=== PATIENT | female | born 1975 | race Caucasian/White ===

== ENCOUNTER 2019-07-21 07:42 | Inpatient (IN) | payer OTHER ==
[~2019-07-21] VITALS: Ht 167.6 cm; Wt 119.5 kg
[~2019-07-21 07:42] MED LIST: AMLO10TA7 PO; BUPIVACAINE HCL/PF 0.25% 30 ML VIAL ONE; BUPIVACAINE LIPOSOME/PF 1.3%-13.3MG/ML SUSPENSION 20 ML VIAL INJ ONE; HYDR-1475 PO; METO50 PO; OMEP10 PO; RINGERS SOLUTION,LACTATED 1,000 ML IV ONE; SITA1TBM7 PO; SODIUM CHLORIDE 0.9% 0 ML ONE; VASOPRESSIN 20 UNITS/ML VIAL ONE
[2019-07-21] MEDS ORDERED: SODIUM CL IRRIG SOLN BAG 0 ML IRRIG ONE (08:10)
[2019-07-21] MEDS ORDERED: SODIUM CL IRRIG SOLN BAG 3,000 ML IRRIG ONE (08:11)
[2019-07-21] MEDS ORDERED: WATER FOR IRRIGATION,STERILE 3,000 ML IRRIG ONE (08:25)
[2019-07-21 08:30] LABS: BASOPHILS % (AUTO) 1.5 % (0.0-2.0); EOSINOPHILS % (AUTO) 2.7 % (1.0-6.0); HEMATOCRIT 38.7 % (36-46); LYMPHOCYTES # (AUTO) 2.5 K/uL (1.0-4.8); LYMPHOCYTES % (AUTO) 29.4 % (22.0-44.0); MEAN CORPUSCULAR HEMOGLOBIN 28.1 pg (26.0-34.0); MEAN CORPUSCULAR HGB CONC 33.5 G/dL (31.0-37.0); MEAN CORPUSCULAR VOLUME 84 fL (80-100); MONOCYTES # (AUTO) 0.5 K/uL (0.1-1.0); MONOCYTES % (AUTO) 6.6 % (2.0-9.0); NEUTROPHILS % (AUTO) 59.8 % (40.0-70.0); PLATELET COUNT (AUTO) 258 K/uL (150-450); RED BLOOD CELL COUNT(AUTO) 4.61 MIL/uL (4.00-5.20); RED CELL DISTRIBUTION WIDTH 14.7 % (11.5-14.5)
[2019-07-21 08:52] LABS: ANION GAP 10 mmol/L (8-16); APPEARANCE,URINE CLOUDY (CLEAR); BILIRUBIN,URINE NEGATIVE (NEGATIVE); CALCIUM, TOTAL 8.5 mg/dL (8.8-10.5); CARBON DIOXIDE 26 mmol/L (22-29); CHLORIDE 100 mmol/L (98-107); CREATININE 0.92 mg/dL (0.60-1.30); GLOMERULAR FILTR. RATE CALC > 60 mL/min (>60); GLUCOSE, URINE (UA) 250 mg/dL (NEGATIVE); GLUCOSE,RANDOM 216 mg/dL (70-110); KETONES,URINE NEGATIVE (NEGATIVE); LEUKOCYTE ESTERASE ,URINE SMALL (NEGATIVE); NITRATE,URINE NEGATIVE (NEGATIVE); OCCULT BLOOD,URINE NEGATIVE (NEGATIVE); POTASSIUM 3.2 mmol/L (3.5-5.1); PROTEIN,URINE NEGATIVE (NEGATIVE); SODIUM SERUM 136 mmol/L (136-145); UREA NITROGEN, BLOOD 22 mg/dL (7-18); UROBILINOGEN,URINE 0.2 mg/dL (<=1.0)
[2019-07-21 08:58] LABS: ALANINE AMINOTRANSFERASE 21 U/L (12-78); ALBUMIN 3.4 g/dL (3.4-5.0); ALKALINE PHOSPHATASE 82 U/L (46-116); ASPARTATE AMINOTRANSFERASE 11 U/L (15-37); BILIRUBIN,TOTAL 0.3 mg/dL (0.1-1.0); TOTAL PROTEIN, SERUM 7.6 g/dL (6.4-8.2)
[2019-07-21] MEDS ORDERED: BUPIVACAINE LIPOSOME/PF 1.3%-13.3MG/ML SUSPENSION 20 ML VIAL INJ ONE (09:00)
[2019-07-21 09:08] LABS: BACTERIA,URINE None Seen /HPF (None Seen); RBC,URINE None Seen /HPF (0-2); SQUAMOUS EPITHELIAL CELL,UR Moderate /LPF (None Seen); WBC,URINE 0-2 /HPF (0-5)
[2019-07-21] MEDS ORDERED: CefoTEtan DISOD 2 GM/DEXTROSE 50 ML IV ONE (09:42)
[2019-07-21] MEDS ORDERED: RINGERS SOLUTION,LACTATED 1,000 ML IV ONE (09:43)
[2019-07-21] MEDS ORDERED: FentaNYL CITRATE-PF 100 MCG/2 ML VIAL IVP PRN (11:15)
[2019-07-21] MEDS ORDERED: HYDROmorphone 2 MG/ML SYRINGE IVP PRN ×2 (11:15)
[2019-07-21] MEDS ORDERED: MIDAZOLAM HCL 2 MG/2 ML VIAL IVP PRN (11:15)
[2019-07-21] MEDS ORDERED: ONDANSETRON HCL 4 MG/2 ML VIAL IVP PRN ×2 (11:15)
[2019-07-21] MEDS ORDERED: DiphenhydrAMINE HCL 50 MG/ML VIAL IVP PRN (11:15)
[2019-07-21] MEDS ORDERED: MEPERIDINE-PF 25 MG/ML VIAL IVP PRN (11:15)
[2019-07-21] MEDS ORDERED: NALOXONE HCL 0.4 MG/ML VIAL IVP PRN ×2 (11:15)
[2019-07-21] MEDS ORDERED: ACETAMINOPHEN 1000 MG/ISO-OSM 100 ML IV ONE ×2 (11:15→13:18)
[2019-07-21] MEDS ORDERED: NALBUPHINE HCL 10 MG/ML VIAL IVP PRN ×2 (11:15)
[2019-07-21] MEDS ORDERED: METHYLENE BLUE 0.5% 10 ML AMPULE IVP ONE (11:45)
[2019-07-21] MEDS ORDERED: ROCURONIUM BROMIDE 10 MG/ML 5 ML VIAL IVP ONE (12:00)
[2019-07-21] MEDS ORDERED: MIDAZOLAM HCL 2 MG/2 ML VIAL IVP ONE (12:00)
[2019-07-21] MEDS ORDERED: FentaNYL CITRATE-PF 100 MCG/2 ML VIAL IVP ONE (12:00)
[2019-07-21] MEDS ORDERED: LIDOCAINE/PF 2% 5 ML VIAL INJ ONE (12:00)
[2019-07-21] MEDS ORDERED: PROPOFOL 1% 20 ML VIAL IVP ONE (12:00)
[2019-07-21] MEDS ORDERED: MORPHINE SULFATE/PF 0.5 MG/ML 10 ML AMP IVP ONE (12:00)
[2019-07-21] MEDS ORDERED: IOHEXOL 240 MG/ML 20 ML VIAL ONE (12:36)
[2019-07-21] MEDS ORDERED: INDIGOTINDISULFONATE SODIUM IVP ONE (12:45)
[2019-07-21] MEDS ORDERED: ONDANSETRON HCL 4 MG/2 ML VIAL ONE ×2 (13:17→14:10)
[2019-07-21 13:37] LABS: GLUCOMETER DEV NAME(LOC) SDS.; GLUCOSE,POINT OF CARE 175 MG/DL (70-110)
[2019-07-21] MEDS ORDERED: DEXTROSE 50%-WATER 25 GM/50 ML SYRINGE IVP PRN ×2 (13:45→16:45)
[2019-07-21] MEDS ORDERED: METOCLOPRAMIDE HCL 5 MG/ML 2 ML VIAL ONE (14:11)
[2019-07-21] MEDS ORDERED: METOCLOPRAMIDE HCL 5 MG/ML 2 ML VIAL IVP STA (14:13)
[2019-07-21] MEDS ORDERED: ONDANSETRON HCL 4 MG/2 ML VIAL IVP STA (14:13)
[2019-07-21] MEDS ORDERED: MEPERIDINE-PF 25 MG/ML VIAL ONE (14:19)
[2019-07-21 15:16] VITALS: BP 116/69
[2019-07-21] MEDS: DEXTROSE 5%-0.45% SODIUM CHL 1,000 ML IV SCH (16:24)
[2019-07-21] MEDS ORDERED: INSULIN LISPRO 100 UNITS/ML SQ PRN (16:45)
[2019-07-21] MEDS ORDERED: NICOTINE 7 MG/24 HOUR PATCH TD SCH (17:00)
[2019-07-21] MEDS ORDERED: INFLUENZA VIRUS VACCINE QVS 2019-20 (3YR+)/PF 60 MCG/0.5 ML SYRINGE IM ONE (17:00)
[2019-07-21 17:35] LABS: GLUCOMETER DEV NAME(LOC) 4S.; GLUCOSE,POINT OF CARE 257 MG/DL (70-110)
[2019-07-21] MEDS: INSULIN LISPRO 100 UNITS/ML SQ PRN ×2 (17:47→20:30)
[2019-07-21] MEDS: KETOROLAC TROMETHAMINE 15 MG/ML VIAL IVP SCH (18:43)
[2019-07-21] MEDS ORDERED: OXYGEN THERAPY IH SCH ×2 (20:00)
[2019-07-21 20:43] VITALS: BP 100/65
[2019-07-21 21:10] LABS: GLUCOSE,POINT OF CARE 223 MG/DL (70-110)
[2019-07-21] MEDS ORDERED: ZOLPIDEM TARTRATE 5 MG TABLET PO PRN (21:30)
[2019-07-21] MEDS: METOPROLOL TARTRATE 50 MG TABLET PO SCH (21:50)
[2019-07-22] MEDS: DEXTROSE 5%-0.45% SODIUM CHL 1,000 ML IV SCH
[2019-07-22 00:06] VITALS: BP 102/69
[2019-07-22] MEDS: KETOROLAC TROMETHAMINE 15 MG/ML VIAL IVP SCH ×4 (01:30→20:35)
[2019-07-22 04:18] VITALS: BP 118/64
[2019-07-22 05:48] VITALS: BP 108/69
[2019-07-22 07:25] LABS: BASOPHILS % (AUTO) 0.4 % (0.0-2.0); EOSINOPHILS % (AUTO) 1.5 % (1.0-6.0); HEMATOCRIT 32.9 % (36-46); HEMOGLOBIN 11.2 g/dL (12.0-16.0); LYMPHOCYTES # (AUTO) 1.8 K/uL (1.0-4.8); LYMPHOCYTES % (AUTO) 22.8 % (22.0-44.0); MEAN CORPUSCULAR HEMOGLOBIN 28.8 pg (26.0-34.0); MEAN CORPUSCULAR VOLUME 85 fL (80-100); MONOCYTES # (AUTO) 0.6 K/uL (0.1-1.0); MONOCYTES % (AUTO) 7.2 % (2.0-9.0); NEUTROPHILS # (AUTO) 5.4 K/uL (1.8-7.7); NEUTROPHILS % (AUTO) 68.1 % (40.0-70.0); PLATELET COUNT (AUTO)-OB 214 K/uL (150-450); RED BLOOD CELL COUNT(AUTO) 3.88 MIL/uL (4.00-5.20)
[2019-07-22 07:34] LABS: CALCIUM, TOTAL 7.6 mg/dL (8.8-10.5); CREATININE 1.06 mg/dL (0.60-1.30)
[2019-07-22 07:41] LABS: POTASSIUM 2.9 mmol/L (3.5-5.1)
[2019-07-22 07:49] VITALS: BP 105/61
[2019-07-22 07:50] LABS: HEMOGLOBIN A1C 10.4 % (3.8-5.6)
[2019-07-22] MEDS ORDERED: POTASSIUM CHLORIDE 20 MEQ ER TABLET PO ONE ×2 (08:00→21:00)
[2019-07-22 08:06] LABS: GLUCOMETER DEV NAME(LOC) 4S.; GLUCOSE,POINT OF CARE 156 MG/DL (70-110)
[2019-07-22] MEDS: INSULIN LISPRO 100 UNITS/ML SQ PRN ×3 (08:13→21:14)
[2019-07-22] MEDS: NICOTINE 14 MG/24 HOUR PATCH TD SCH (09:00)
[2019-07-22] MEDS: METOPROLOL TARTRATE 50 MG TABLET PO SCH ×2 (09:04→20:56)
[2019-07-22] MEDS: AmLODIPine BESYLATE 10 MG TABLET PO SCH (09:04)
[2019-07-22] MEDS: HYDROCHLOROTHIAZIDE 25 MG TABLET PO SCH (09:05)
[2019-07-22] MEDS: OMEPRAZOLE 10 MG CAPSULE PO SCH (09:05)
[2019-07-22 12:45] LABS: GLUCOMETER DEV NAME(LOC) 4S.; GLUCOSE,POINT OF CARE 129 MG/DL (70-110)
[2019-07-22 14:32] VITALS: BP 109/66
[2019-07-22 17:53] LABS: GLUCOMETER DEV NAME(LOC) 4S.; GLUCOSE,POINT OF CARE 210 MG/DL (70-110)
[2019-07-22 20:07] VITALS: BP 116/73
[2019-07-22 21:31] LABS: GLUCOMETER DEV NAME(LOC) 4S.; GLUCOSE,POINT OF CARE 236 MG/DL (70-110)
[2019-07-23 02:13] VITALS: BP 134/76
[2019-07-23] MEDS: KETOROLAC TROMETHAMINE 15 MG/ML VIAL IVP SCH ×3 (02:13→14:10)
[2019-07-23 07:55] LABS: GLUCOMETER DEV NAME(LOC) 4S.; GLUCOSE,POINT OF CARE 198 MG/DL (70-110)
[2019-07-23] MEDS: INSULIN LISPRO 100 UNITS/ML SQ PRN ×2 (07:58→12:12)
[2019-07-23] MEDS: METOPROLOL TARTRATE 50 MG TABLET PO SCH (08:59)
[2019-07-23] MEDS: AmLODIPine BESYLATE 10 MG TABLET PO SCH (09:00)
[2019-07-23] MEDS: NICOTINE 14 MG/24 HOUR PATCH TD SCH (09:00)
[2019-07-23] MEDS: OMEPRAZOLE 10 MG CAPSULE PO SCH (09:01)
[2019-07-23] MEDS: HYDROCHLOROTHIAZIDE 25 MG TABLET PO SCH (09:04)
[2019-07-23] MEDS ORDERED: IBUP-2070 PO (11:31)
[2019-07-23] MEDS ORDERED: PERCT PO (11:32)
[2019-07-23] MEDS ORDERED: PNEUMOCOCCAL VACCINE POLYVALENT 0.5 ML VIAL [PPSV23] IM ONE (11:45)
[2019-07-23 12:06] LABS: GLUCOMETER DEV NAME(LOC) 4S.; GLUCOSE,POINT OF CARE 233 MG/DL (70-110)
== END 2019-07-23 14:40 | disposition home or self-care (01) | DRG 513 ==
LOC: 6N 07:42 → 4S 16:13
PROVIDERS: ADMIT Obstetrics & Gynecology; ATTEND Obstetrics & Gynecology
PROC: 0UT70ZZ Resection of Bilateral Fallopian Tubes, Open Approach (ICD-10-PCS; 2019-07-21)
PROC: 0UT90ZZ Resection of Uterus, Open Approach (ICD-10-PCS; 2019-07-21)
PROC: 0UT10ZZ Resection of Left Ovary, Open Approach (ICD-10-PCS; principal; 2019-07-21 09:00)
PROC: 3E0234Z Introduction of Serum, Toxoid and Vaccine into Muscle, Percutaneous Approach (ICD-10-PCS; 2019-07-23)
DX: N83.292 Other ovarian cyst, left side (principal); Z68.41 Body mass index [BMI] 40.0-44.9, adult; N92.0 Excessive and frequent menstruation with regular cycle; E66.9 Obesity, unspecified; E87.6 Hypokalemia; E11.9 Type 2 diabetes mellitus without complications; K21.9 Gastro-esophageal reflux disease without esophagitis; N73.6 Female pelvic peritoneal adhesions (postinfective); N94.6 Dysmenorrhea, unspecified; R19.00 Intra-abdominal and pelvic swelling, mass and lump, unspecified site; Z23 Encounter for immunization
CPT/HCPCS: 83036; 84132; 86850; 86900; 86901; 87635; 90686; 90732; 93005; C9290; J0131; J1885; J2175; J2250; J2274; J2405; J2704; J2765; J3010; J3490; J7050; J7120; Q9966